=== PATIENT | male | born 1990 | race Caucasian/White ===

== ENCOUNTER 2016-09-07 01:21 | Emergency (ER) | payer OTHER ==
[~2016-09-07] VITALS: Ht 182.9 cm; Wt 82.0 kg
[2016-09-07 01:27] VITALS: Ht 182.9 cm; Wt 82.0 kg
[2016-09-07] MEDS ORDERED: ONDANSETRON 4 MG INJ IV STA (01:48)
[2016-09-07] MEDS ORDERED: SOD CHLORIDE 0.9% 1,000 ML IV STA (01:48)
[2016-09-07] MEDS ORDERED: morphine 4 MG/ML VIAL IV STA (01:48)
--- NOTE | 2016-09-07 01:55 | ERD ---
ER Documentation Chief Complaint Date/Time DATE: 09/07/16 TIME: 01:54 Chief Complaint sudden onset right testicular pain w/ feeling of edema to area, no injury HPI 25-year-old male presents to emergency department for complaints of right testicular pain, right lower quadrant abdominal pain started one hour prior to arrival. Patient described the pain as throbbing pain, 8/10 scale, now better or worse with anything. Patient did not take any medications for symptoms. Patient denies any fever or chills. Patient denies any nausea or vomiting. Patient denies any diarrhea or constipation. ROS All systems reviewed and are negative except as per history of present illness. Medications Home Meds Reported Medications [unknown] Unknown Strength No Conflict Check 09/07/16 Allergies Allergies: Coded Allergies: No Known Drug Allergies (Verified Allergy, Unknown, 09/07/16) PMhx/Soc History of Surgery: Yes (brain surgery, left testicular surgery) FmHx Family History: No coronary disease, No diabetes, No other Physical Exam Vitals Vital Signs Date Time Temp Pulse Resp B/P Pulse Ox O2 Delivery O2 Flow Rate FiO2 09/07/16 01:27 97.8 99 20 137/87 100 Physical Exam GENERAL: The patient is well developed and appropriate for usual state of health, in no apparent distress. CHEST: Clear to auscultation bilaterally. There are no rales, wheezes or rhonchi. HEART: Regular rate and rhythm. No murmurs, clicks, rubs or gallops. No S3 or S4. ABDOMEN: Soft, nontender and nondistended. Good bowel sounds. No rebound or guarding. No gross peritonitis. No gross organomegaly or masses. No Hamilton sign or McBurney point tenderness. BACK: No midline or flank tenderness. EXTREMITIES: Equal pulses bilaterally. There is no peripheral clubbing, cyanosis or edema. No focal swelling or erythema. Full range of motion. Grossly neurovascularly intact. NEURO: Alert and oriented. Cranial nerves 2-12 intact. Motor strength in all 4 extremities with 5/5 strength. Sensation grossly intact. Normal speech and gait. SKIN: There is no apparent rash or petechia. The skin is warm and dry. HEMATOLOGIC AND LYMPHATIC: There is no evidence of excessive bruising or lymphedema. No gross cervical, axillary, or inguinal lymphadenopathy. : Noted inguinal hernia, right testicular tenderness noted, no penile discharge noted. No lesions noted. Result Diagram: 2/2/17 0152 09/07/16 0152 Results 24 hrs Laboratory Tests Test 09/07/16 01:52 09/07/16 03:15 Alanine Aminotransferase (ALT/SGPT) 69IU/L Albumin 3.9g/dl Albumin/Globulin Ratio 1.34 Alkaline Phosphatase 59IU/L Anion Gap 19 Aspartate Amino Transf (AST/SGOT) 25IU/L Basophils # 0.010^3/ul Basophils % 0.2% Blood Morphology Comment Blood Urea Nitrogen 20mg/dl Calcium Level 9.6mg/dl Carbon Dioxide Level 28mmol/L Chloride Level 96mmol/L Creatinine 0.51mg/dl Direct Bilirubin 0.00mg/dl Eosinophils # 0.010^3/ul Eosinophils % 0.0% Globulin 2.90g/dl Glucose Level 128mg/dl Hematocrit 45.1% Hemoglobin 15.2g/dl Indirect Bilirubin 0.6mg/dl Lipase 91U/L Lymphocytes # 0.510^3/ul Lymphocytes % 5.9% Mean Corpuscular Hemoglobin 29.6pg Mean Corpuscular Hemoglobin Concent 33.8g/dl Mean Corpuscular Volume 87.7fl Mean Platelet Volume 6.5fl Monocytes # 0.210^3/ul Monocytes % 2.9% Neutrophils # 7.610^3/ul Neutrophils % 91.0% Nucleated Red Blood Cells # 0.010^3/ul Nucleated Red Blood Cells % 0.0/100WBC Platelet Count 08091^3/UL Potassium Level 4.3mmol/L Red Blood Count 5.1410^6/ul Red Cell Distribution Width 14.2% Sodium Level 139mmol/L Total Bilirubin 0.6mg/dl Total Protein 6.8g/dl White Blood Count 8.310^3/ul Urine Bilirubin NEGATIVE Urine Clarity CLOUDY Urine Color YELLOW Urine Glucose NEGATIVE% Urine Hemoglobin NEGATIVE Urine Ketones TRACE Urine Leukocyte Esterase TRACE Urine Microscopic RBC Pending Urine Microscopic WBC Pending Urine Nitrite POSITIVE Urine Specific [place] 1.010 Urine Total Protein TRACE Urine Urobilinogen 1.0 E.U./dL Urine pH 7.5 Current Medications Medications (Trade) Dose Ordered Sig/Rafy Route PRN Reason Start Time Stop Time Status Last Admin Dose Admin Sodium Chloride (NS) 1,000 ml @ 1,000 mls/hr Q1H STAT IV 09/07/16 01:48 09/07/16 02:47 DC 09/07/16 02:04 Morphine Sulfate (morphine) 4 mg ONCE STAT IV 09/07/16 01:48 09/07/16 01:49 DC 09/07/16 02:05 Ondansetron HCl (Zofran Inj) 4 mg ONCE STAT IV 09/07/16 01:48 09/07/16 01:49 DC 09/07/16 02:04 IV Flush 10 ml 10 ml STK-MED ONCE .ROUTE 09/07/16 02:23 09/07/16 02:24 DC 09/07/16 02:38 Sodium Chloride (NS) 100 ml @ ud STK-MED ONCE .ROUTE 09/07/16 02:23 09/07/16 02:24 DC 09/07/16 02:38 Iohexol (Omnipaque 300mg/ ml) 150 ml STK-MED ONCE .ROUTE 09/07/16 02:23 09/07/16 02:24 DC 09/07/16 02:40 Hydromorphone HCl 1 mg 1 mg ONCE ONCE IV 09/07/16 03:20 09/07/16 03:21 DC 09/07/16 03:27 Ceftriaxone Sodium (Rocephin) 50 ml @ 100 mls/hr ONCE ONCE IVPB 09/07/16 04:30 09/07/16 04:59 Patient was given medication for pain here in emergency department, after treatment, patient verbalized feeling much better. Patient's pain is improved.Patient was given Zofran here in the emergency department. After treatment, patient was able to tolerate po fluids here in the emergency department without any vomiting. There is no signs and symptoms of dehydration. Normal saline IV bolus was given here in emergency department for rehydration, patient tolerated IV fluids. Rocephin was given here in emergency department for treatment for urinary tract infection. PROCEDURE: Testicle ultrasound with power Doppler. CLINICAL INDICATION: Scrotal pain. TECHNIQUE: Multiple sonographic images of the scrotal region were obtained utilizing a linear array transducer with grayscale and color-flow and a Doppler imaging. The images were reviewed on a high-resolution PACS workstation. COMPARISON: None. FINDINGS: The left testicle is absent. The right testicle is of normal in size, contour, echogenicity and echotexture. The right testicle measures 4.0 x 1.7 x 3.0 cm. Testicle arterial and venous flow are normal. There is no evidence of testicular mass or torsion. There is no evidence of orchitis. The left epididymis is not visualized. The right epididymis measures 8.0 x 4.2 mm. There is no evidence of epididymitis. There is no significant hydrocele or varicocele. IMPRESSION: Status post left radical orchiectomy. Otherwise unremarkable right testicular ultrasound. .Evens Cartagena MD, Date Time Electronically viewed and signed by .Evens Cartagena MD, MD on 09/07/2016 02:40 .T/ CC: RENITA ROSENBERG NP PROCEDURE: CT Abdomen and pelvis with contrast. CLINICAL INDICATION: Abdominal pain. TECHNIQUE: CT scan of the abdomen and pelvis with contrast was performed on a multi-detector high-resolution CT scanner. The patient was scanned following the uncomplicated intravenous administration of 100 cc of Omnipaque 300. Coronal and sagittal reformatted images were obtained from the axial source images. Images were reviewed on a high-resolution PACS workstation. One or more of the following dose reduction techniques were used: - Automated exposure control. - Adjustment of the mA and/or kV according to patient size. - Use of iterative reconstruction technique. Exam CTD/vol = 11.99 mGy. Total exam DLP = 727.72 mGy-cm. COMPARISON: None. FINDINGS: Evaluation of the lung bases demonstrates mild right basilar atelectasis. Abdomen: The liver is normal in size. There is no focal mass or dilatation of the biliary tree. The gallbladder is not distended. A biliary stent is present extending from the distal common bile duct to the duodenum. The spleen , pancreas and bilateral adrenal glands are within normal limits. Bilateral kidneys are normal in size with symmetric enhancement. There is no focal renal mass identified. There is mild hydronephrosis bilaterally. There are prominent periaortic lymph nodes. There is a prominent periaortic lymph node measuring 2.0 x 2.6 cm at the level of the kidneys. The abdominal aorta is of normal caliber. There is moderate retained stool within the colon. There is no bowel obstruction or free air. A normal appendix is identified. There is no diverticulosis or diverticulitis. There is no ascites. Pelvis: The bladder is moderately distended. The patient is status post left orchiectomy. The prostate and seminal vesicles are within normal limits. There is no significant pelvic adenopathy or free fluid. Evaluation of the osseous structures demonstrates no suspicious lytic or blastic lesion. IMPRESSION: Moderately distended bladder and bilateral mild hydronephrosis. Bladder decompression is suggested. Mild retroperitoneal adenopathy. Moderate retained stool within the colon. Biliary stent. Mild right basilar atelectasis. .Evens Cartagena MD, MD Date Time Electronically viewed and signed by .Evens Cartagena MD, MD on 09/07/2016 03:09 .T/ CC: RENITA ROSENBERG NEURO INTENSIVIST PHYSICIAN Procedures/MDM Medical Decision Making: Patient's abdominal pain and scrotal pain nonspecific at this time, possible consistent with urinary tract infection, patient had a full bladder, patient is improved after able urinate. No symptoms of an testicular torsion, epididymitis or orchitis. Patient also has moderate stool in the colon can be causing the pain. There is low suspicion for abdominal emergencies at this time. Patients abdominal exam is normal at this time. Patients radiology exam does not show any abdominal emergencies at this time. There is low suspicion for appendicitis, cholecystitis, abdominal aortic aneurysms or peritonitis at this time. There is low suspicion for sepsis. Patient appears well and is hemodynamically stable. Disposition: Home. Condition: Stable Prescription Pyridium, ciprofloxacin, Mckenzie for pain ibuprofen, Colace, MiraLAX Instructions: Patient is advised to take medications as prescribed. Patient is advised to rest, increase fluid intake and do good penile hygiene. Patient is advised that if symptoms are worse, severe abdominal pain, uncontrolled vomiting , high fever, severe flank pain, worst signs and symptoms, to return to the emergency department immediately. Otherwise, patient can follow up with primary care doctor in 5-7 days. Departure Diagnosis: Primary Impression: Abdominal pain Abdominal location: right lower quadrant Qualified Code: R10.31 - Right lower quadrant abdominal pain Additional Impressions: Scrotal pain UTI (urinary tract infection) Urinary tract infection type: acute cystitis Hematuria presence: without hematuria Qualified Code: N30.00 - Acute cystitis without hematuria Constipation Constipation type: unspecified constipation type Qualified Code: K59.00 - Constipation, unspecified constipation type Condition: Stable Patient Instructions: Abdominal Pain, Testicular Pain, Unclear Cause, Understanding Urinary Tract Infections (UTIs) Additional Instructions: Patient is advised to take medications as prescribed. Patient is advised to rest , increase fluid intake and do good penile hygiene. Patient is advised that if symptoms are worse, severe abdominal pain, uncontrolled vomiting, high fever, severe flank pain, worst signs and symptoms, to return to the emergency department immediately. Otherwise, patient can follow up with primary care doctor in 5-7 days. RENITA ROSENBERG NP Sep 07, 2016 01:55
[2016-09-07 02:04] LABS: BASOPHILS % 0.2 % (0.0-2.0); HEMATOCRIT 45.1 % (42.0-52.0); HEMOGLOBIN 15.2 g/dl (14.0-18.0); LYMPHOCYTES # 0.5 10^3/ul (0.8-2.9); LYMPHOCYTES % 5.9 % (15.0-51.0); MEAN CORPUSCULAR HEMOGLOBIN 29.6 pg (29.0-33.0); MEAN CORPUSCULAR HGB CONC 33.8 g/dl (32.0-37.0); MEAN CORPUSCULAR VOLUME 87.7 fl (82.0-101.0); MEAN PLATELET VOLUME 6.5 fl (7.4-10.4); MONOCYTE # 0.2 10^3/ul (0.3-0.9); MONOCYTES % 2.9 % (0.0-11.0); NEUTROPHIL # 7.6 10^3/ul (1.6-7.5); PLATELET COUNT 217 10^3/UL (140-440); RED BLOOD COUNT 5.14 10^6/ul (4.70-6.10); RED CELL DISTRIBUTION WIDTH 14.2 % (11.5-14.5); UNCORRECTED WBC 8.3 10^3/ul (4.8-10.8); WHITE BLOOD COUNT 8.3 10^3/ul (4.8-10.8)
[2016-09-07 02:07] LABS: CONDITION 1; LH ANALYZER COMMENTS 1
[2016-09-07 02:14] LABS: ALBUMIN 3.9 g/dl (3.3-4.9); POTASSIUM 4.3 mmol/L (3.5-5.1)
[2016-09-07 02:16] LABS: BILIRUBIN,INDIRECT 0.6 mg/dl (0-1.1); BILIRUBIN,TOTAL 0.6 mg/dl (0.2-1.3); CREATININE 0.51 mg/dl (0.61-1.24)
[2016-09-07 02:17] LABS: ALBUMIN/GLOBULIN RATIO 1.34; CALCIUM 9.6 mg/dl (8.4-10.2); TOTAL PROTEIN 6.8 g/dl (6.1-8.1)
[2016-09-07] MEDS ORDERED: SOD CHLORIDE 0.9% 100 ML ONE (02:23)
[2016-09-07] MEDS ORDERED: IOHEXOL 300MG/ML 150 ML BTL ONE (02:23)
--- NOTE | 2016-09-07 02:40 | RADRPT ---
PROCEDURE: Testicle ultrasound with power Doppler. CLINICAL INDICATION: Scrotal pain. TECHNIQUE: Multiple sonographic images of the scrotal region were obtained utilizing a linear arra y transducer with grayscale and color-flow and a Doppler imaging. The images were reviewed on a high -resolution PACS workstation. COMPARISON: None. FINDINGS: The left testicle is absent. The right testicle is of normal in size, contour, echogenicity and ech otexture. The right testicle measures 4.0 x 1.7 x 3.0 cm. Testicle arterial and venous flow are nor mal. There is no evidence of testicular mass or torsion. There is no evidence of orchitis. The left epididymis is not visualized. The right epididymis measures 8.0 x 4.2 mm. There is no evid ence of epididymitis. There is no significant hydrocele or varicocele. IMPRESSION: Status post left radical orchiectomy. Otherwise unremarkable right testicular ultrasound. .Evens Cartagena MD, MD Date Time Electronically viewed and signed by .Evens Cartagena MD, MD on 09/07/2016 02:40 .T/
--- NOTE | 2016-09-07 03:10 | RADRPT ---
PROCEDURE: CT Abdomen and pelvis with contrast. CLINICAL INDICATION: Abdominal pain. TECHNIQUE: CT scan of the abdomen and pelvis with contrast was performed on a multi-detector high -resolution CT scanner. The patient was scanned following the uncomplicated intravenous administrat ion of 100 cc of Omnipaque 300. Coronal and sagittal reformatted images were obtained from the axia l source images. Images were reviewed on a high-resolution PACS workstation. One or more of the following dose reduction techniques were used: - Automated exposure control. - Adjustment of the mA and/or kV according to patient size. - Use of iterative reconstruction technique. Exam CTD/vol = 11.99 mGy. Total exam DLP = 727.72 mGy-cm. COMPARISON: None. FINDINGS: Evaluation of the lung bases demonstrates mild right basilar atelectasis. Abdomen: The liver is normal in size. There is no focal mass or dilatation of the biliary tree. T he gallbladder is not distended. A biliary stent is present extending from the distal common bile d uct to the duodenum. The spleen, pancreas and bilateral adrenal glands are within normal limits. B ilateral kidneys are normal in size with symmetric enhancement. There is no focal renal mass identi fied. There is mild hydronephrosis bilaterally. There are prominent periaortic lymph nodes. There is a prominent periaortic lymph node measuring 2.0 x 2.6 cm at the level of the kidneys. The abdom inal aorta is of normal caliber. There is moderate retained stool within the colon. There is no bowel obstruction or free air. A no rmal appendix is identified. There is no diverticulosis or diverticulitis. There is no ascites. Pelvis: The bladder is moderately distended. The patient is status post left orchiectomy. The pro state and seminal vesicles are within normal limits. There is no significant pelvic adenopathy or f ree fluid. Evaluation of the osseous structures demonstrates no suspicious lytic or blastic lesion. IMPRESSION: Moderately distended bladder and bilateral mild hydronephrosis. Bladder decompression is suggested. Mild retroperitoneal adenopathy. Moderate retained stool within the colon. Biliary stent. Mild right basilar atelectasis. .Evens Cartagena MD, MD Date Time Electronically viewed and signed by .Evens Cartagena MD, on 09/07/2016 03:09 .T/
[2016-09-07] MEDS ORDERED: HYDROmorphONE 1 MG/ML SYG IV ONE (03:20)
[2016-09-07 04:05] LABS: ADD UMIC YES; URINE BILIRUBIN (Dip) NEGATIVE (NEGATIVE); URINE BLOOD (Dip) NEGATIVE (NEGATIVE); URINE COLOR YELLOW (YELLOW); URINE GLUCOSE (Dip) NEGATIVE (NEGATIVE); URINE KETONES (Dip) TRACE (NEGATIVE); URINE LEUKOCYTE ESTERASE (Dip) TRACE (NEGATIVE); URINE NITRITE (Dip) POSITIVE (NEGATIVE); URINE TOTAL PROTEIN (Dip) TRACE (NEGATIVE); URINE UROBILINOGEN (Dip) 1.0 E.U./dL (0.1-1.0)
[2016-09-07] MEDS ORDERED: CEFTRIAXONE 1 GM/50 ML (PMX) 50 ML IVPB ONE (04:30)
[2016-09-07] MEDS ORDERED: POLY17PO6 PO (04:32)
[2016-09-07] MEDS ORDERED: DOCU-144 PO (04:32)
[2016-09-07] MEDS ORDERED: HYDR-906 PO (04:32)
[2016-09-07] MEDS ORDERED: CIPR500T4 PO (04:32)
[2016-09-07] MEDS ORDERED: IBUP-1542 PO (04:32)
[2016-09-07] MEDS ORDERED: PHEN-538 PO (04:32)
[2016-09-07 05:16] LABS: BACTERIA,URINE MANY; SQUAMOUS EPITHELIAL CELL,UR FEW; URINE RBCS 0-2 /HPF (0)
[2016-09-07 05:31] VITALS: BP 133/94; PULSE 93; RESP 16; TEMP 98.1
== END 2016-09-07 05:45 | disposition home or self-care (01) ==
LOC: FTE 01:21
DX: R10.31 Right lower quadrant pain (principal); N50.82 Scrotal pain; N30.00 Acute cystitis without hematuria; K59.00 Constipation, unspecified
CPT/HCPCS: 36415; 74177; 76870; 80053; 81001; 83690; 85025; 87086; 96374; 96375; J0696; J1170; J2270; J2405; J7030; Q9967; Z7502; Z7610; 81003